=== PATIENT | female | born 1990 | race African-American/Black ===

== ENCOUNTER 2019-12-03 18:15 | Emergency (ER) | payer OTHER, SELFPAY ==
--- NOTE | ~2019-12-03 | XR_ITS ---
EXAMINATION: XR chest 1V portable EXAM DATE: 12/03/2019 18:47 INDICATION: Shortness of breath, cough and fever. TECHNIQUE: Portable AP frontal chest x-ray was obtained. There is no prior study for comparison. FINDINGS: The lungs are clear. There are no pleural effusions. Cardiac silhouette is prominent but magnified on this AP technique. There is no pneumothorax suspected. The bones and soft tissues are unremarkable. IMPRESSION: No acute cardiopulmonary findings. Reviewed, dictated and finalized at location A.
[2019-12-03 18:15] VITALS: BP 129/70; PULSE 79; RESP 16; TEMP 36.8; O2SAT 100
--- NOTE | 2019-12-03 18:30 | ED.URI ---
HPI - URI/Sore Throat General Chief Complaint: Upper Respiratory Infection Stated Complaint: short of breath, cough, congestion, chills Time Seen by Provider: 12/03/19 18:25 History of Present Illness HPI Narrative: Sore throat, pleuritic chest pain, wheezing, SOB, chills for the past day. She is not aware of any sick contacts. 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 Vitals during triage were all normal. She has a h/o asthma, tried breathing treatment without improvement. Related Data Allergies Allergy/AdvReac Type Severity Reaction Status Date / Time No Known Allergies Allergy Unverified 11/08/16 14:48 Review of Systems Review of Systems: All systems reviewed & are unremarkable except as noted in HPI and below Constitutional: Constitutional: Reports chills, Reports fatigue and Denies fever(s) ENT: Reports sore throat Cardiovascular: Cardiovascular: Reports chest pain Respiratory: Respiratory: Reports chest congestion, Reports cough, Reports dyspnea and Reports wheezing Gastrointestinal: Gastrointestinal: Denies abdominal pain, Denies nausea and Denies vomiting Genitourinary: Genitourinary: Denies dysuria Neurologic: Denies dizziness and Denies weakness [facility] Past Medical History Medical History (Updated 12/03/19 @ 19:09 by Jer Valdez MD) Asthma Social History Social History (Updated 12/03/19 @ 18:44 by Jer Valdez MD) Social History: Works as STRATEGIC SOURCING 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 in retirement Smoking status: Never smoker Exam Const: General: healthy appearing, no acute distress and alert Orientation/consciousness: patient oriented x3 Resp: Effort & Inspection: normal respiratory effort Skin: General skin exam: normal color Neuro: General: patient oriented x3, moves all extremities and no focal motor deficits Speech: normal speech Extrem: General: normal to inspection Course Vital Signs Vital signs: Vital Signs Temperature 36.8 C 12/03/19 18:15 Pulse Rate 79 12/03/19 18:15 Respiratory Rate 16 12/03/19 18:15 Blood Pressure 129/70 12/03/19 18:15 Pulse Oximetry 100 12/03/19 18:15 Temperature 36.8 C 12/03/19 18:15 Pulse Rate 79 12/03/19 18:15 Respiratory Rate 16 12/03/19 18:15 Blood Pressure 129/70 12/03/19 18:15 Pulse Oximetry 100 12/03/19 18:15 MDM - URI/Sore Throat MDM Narrative Medical decision making narrative: COVID is possible. She does not meet criteria for priority testing or hospitalization. X-ray is clear. Strep and influenza negative. Differential Diagnosis Differential diagnosis: Likely upper respiratory infection, influenza and pharyngitis Medical Records Attestation: I reviewed the patient's medical records. Lab Data Attestation: I reviewed the patient's lab results. Labs: Influenza A Screen Negative Reference Range: Negative Influenza B Screen Negative Reference Range: Negative Strep Screen Presumptive Negative *(Reference Range: Negative)* Discharge Plan Discharge Clinical Impression: Upper respiratory infection Qualifiers: URI type: unspecified URI Qualified Code(s): J06.9 - Acute upper respiratory infection, unspecified Patient Disposition: Home, Self-Care Condition: Stable Instructions: Upper Respiratory Infection (ED) Additional Instructions: Practice self quarantine. Do not return to work until you have been asymptomatic for at least 3 days. Interventions: Discharge Disposition Last Done: 12/03/19 19:14 IV Removed Last Done: 12/03/19 19:14 IV Stop Time Documented Last Done: 12/03/19 19:14 Follow-up/Referrals: UNKNOWN,DOCTOR [Primary Care Provider] - Discharge Date/Time: 12/03/19 19:15
== END 2019-12-03 19:15 | disposition home or self-care (01) ==
PROVIDERS: Emergency Provider Emergency Medicine
DX: J06.9 Acute upper respiratory infection, unspecified (principal); J45.909 Unspecified asthma, uncomplicated
CPT/HCPCS: 71045; 87081; 87804; 87880; 99283

== ENCOUNTER 2020-04-14 15:00 | Emergency (ER) | payer OTHER, SELFPAY ==
--- NOTE | ~2020-04-14 | XR_ITS ---
XR chest 1V portable DATE: 04/14/2020 15:40 INDICATION: Shortness of breath. Covid. TECHNIQUE: Portable upright AP chest on 04/14/2020 at 1539 hours COMPARISON: 12/03/2019 portable AP chest FINDINGS: Normal heart size. No hilar or mediastinal enlargement. No pulmonary infiltrate or consolid ation, pleural effusion or pulmonary vascular congestion or pneumothorax. IMPRESSION: No active cardiopulmonary disease Reviewed, dictated and finalized at location A.
[2020-04-14 15:08] VITALS: BP 128/80; PULSE 80; RESP 17; O2SAT 100
[2020-04-14 15:10] VITALS: PULSE 78
--- NOTE | 2020-04-14 15:10 | ED.SOB ---
HPI - SOB/Dyspnea General Chief Complaint: Shortness of Breath/Dyspnea Stated Complaint: covid +, can't catch my breath Time Seen by Provider: 04/14/20 15:09 Source: patient Mode of arrival: wheelchair Limitations: no limitations History of Present Illness HPI Narrative: Patient is a 30-year-old female with a history of asthma who presents for evaluation of shortness of breath in the setting of recent positive cover test. Patient states she has been symptomatic for 5 days with fever, cough, cold symptoms. She states she developed some shortness of breath over the past 48 hours. She states that when she ambulates she feels very short of breath. She denies current chest pain. No fever today. Patient states she only had 1 day of fevers with initial symptoms. Patient states she feels weak, she has achiness all over her body. She denies any dysuria or hematuria. Related Data Home Medications Medication Instructions Recorded Confirmed etonogestrel-ethinyl estradiol vag ring VAGINAL 04/14/20 [NuvaRing] Allergies Allergy/AdvReac Type Severity Reaction Status Date / Time No Known Allergies Allergy Unverified 04/14/20 15:13 Review of Systems Review of Systems: Narrative: CONSTITUTIONAL: Reports 1 day of fever earlier in the week, no current fever ENT: Reports rhinorrhea and congestion CARDIOVASCULAR: Denies chest pain, palpitations, or edema. RESPIRATORY: Reports dry cough and shortness of breath GASTROINTESTINAL: Denies abdominal pain, reports nausea without vomiting GENITOURINARY: Denies dysuria or hematuria. SKIN: Denies rash or itching. 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 EYES: PERRLA and EOMI. ENT: Nares clear, no rhinorrhea or epistaxis. Mucous membranes moist. NECK: Supple. CHEST: No respiratory distress, breathing even and non labored, positive chest wall tenderness HEART: Regular rate, sinus rhythm ABDOMEN:Non distended, non tender EXTREMITIES: Normal range of motion. No edema. SKIN: Warm, dry, no rash. NEURO:No focal deficits. Alert and oriented x3 Course Vital Signs Vital signs: Vital Signs Pulse Rate 80 04/14/20 15:08 Respiratory Rate 17 04/14/20 15:08 Blood Pressure 128/80 04/14/20 15:08 Pulse Oximetry 100 04/14/20 15:08 Temperature 36.9 C 04/14/20 17:43 Pulse Rate 64 04/14/20 17:43 Respiratory Rate 20 04/14/20 17:43 Blood Pressure 111/76 04/14/20 17:43 Pulse Oximetry 100 04/14/20 17:43 MDM - SOB/Dyspnea MDM Narrative Medical decision making narrative: Patient presented for evaluation of myalgias, shortness of breath in the setting of recently diagnosed COVID infection. Patient presents with very stable vital signs and no respiratory distress. No hypotension, tachycardia, patient is afebrile, and no hypoxemia. Absolutely no respiratory distress on exam. Given patient is on control with history of COVID, wanted to rule out any blood clot or coagulopathy. Laboratory work-up is reassuring. EKG without any acute ischemic changes. Chest x-ray without any acute infiltrates or evidence of ARDS. Laboratory results without leukocytosis, no electrolyte derangement, no elevation in d-dimer. Thus I doubt PE given no hypoxemia, no tachycardia, no lab markers of severe symptoms and d-dimer is not elevated. Troponin not elevated, I doubt myocarditis. No back pain or ripping/tearing sensation to pain, thus I doubt vascular pathology [place] given stable vital signs. Patient was a
--- NOTE | 2020-04-14 15:12 | ECG_ITS ---
Measurements Intervals [place] Rate: 72 P: 11 FL: 144 QRS: 62 QRSD: 99 T: 51 QT: 375 QTc: 410 Interpretive Statements SINUS RHYTHM NORMAL ECG Electronically Signed On 04-14-2020 15:39:19 CDT by Felix Luciano D.O.
[2020-04-14 15:25] LABS: Basophils Percent Auto 0.6 % (0.2-1.2); Eosinophils Absolute Auto 0.3 K/mm3 (0-0.3); Eosinophils Percent Auto 4.5 % (0-4.4); Hematocrit 41.3 % (37.0-47.0); Hemoglobin 13.9 g/dL (12.0-15.0); Immature Granulocyte Absolute 0.02 K/mm3 (0.00-0.031); Immature Granulocyte Percent A 0.3 % (0-0.5); Lymphocytes Percent Auto 46.5 % (18.3-44.2); Mean Corpuscular HGB Conc 33.7 g/dl (32-36); Mean Corpuscular Hemoglobin 30.1 pg (26-34); Mean Corpuscular Volume 89.4 fl (80-100); Mean Platelet Volume 10.4 fl (7.4-10.4); Monocytes Absolute Auto 0.4 K/mm3 (0.1-0.6); Monocytes Percent Auto 6.6 % (2.6-8.5); Neutrophils Absolute Auto 2.6 K/mm3 (1.3-6.7); Neutrophils Percent Auto 41.5 % (45.5-73.1); Platelet Count Result 301 k/mm3 (150-375); Red Blood Count 4.62 M/mm3 (4.2-5.4); Red Cell Distribution Width 11.5 % (11.5-14.5); White Blood Count 6.2 K/mm3 (4.5-10.0)
[2020-04-14 15:38] LABS: Anion Gap 9 mmol/L (8-16); Blood Urea Nitrogen 9 mg/dL (7-17); Calcium 9.4 mg/dL (8.4-10.2); Carbon Dioxide 24 mmol/L (22-30); Chloride 104 mmol/L (98-107); Estimated CRCL calculation 87 ml/min; Estimated Glomerular Filt Rate > 60; Glucose 89 mg/dL (65-105); Potassium 4.3 mmol/L (3.4-5.0); Sodium 137 mmol/L (137-145)
--- NOTE | 2020-04-14 15:42 | PC.NURSE ---
called lab to come draw pt
[2020-04-14] MEDS: SODIUM CHLORIDE 0.9% IV 500 ML 999 ML IV CONT (15:48)
[2020-04-14] MEDS: ACETAMINOPHEN 500 MG TABLET 1000 MG PO (15:48)
[2020-04-14] MEDS: MORPHINE SULFATE 2 MG/ML INJ IV PUSH (15:54)
[2020-04-14] MEDS: ONDANSETRON INJ 4 MG/2 ML VIAL IV PUSH (15:54)
[2020-04-14 16:14] LABS: Basophils Percent Auto 0.5 % (0.2-1.2); Eosinophils Absolute Auto 0.2 K/mm3 (0-0.3); Eosinophils Percent Auto 3.9 % (0-4.4); Hematocrit 39.9 % (37.0-47.0); Hemoglobin 13.2 g/dL (12.0-15.0); Immature Granulocyte Absolute 0.02 K/mm3 (0.00-0.031); Immature Granulocyte Percent A 0.4 % (0-0.5); Lymphocytes Absolute Auto 2.42 K/mm3 (0.9-3.2); Lymphocytes Percent Auto 42.7 % (18.3-44.2); Mean Corpuscular HGB Conc 33.1 g/dl (32-36); Mean Corpuscular Hemoglobin 29.9 pg (26-34); Mean Corpuscular Volume 90.3 fl (80-100); Mean Platelet Volume 10.2 fl (7.4-10.4); Monocytes Absolute Auto 0.3 K/mm3 (0.1-0.6); Neutrophils Absolute Auto 2.6 K/mm3 (1.3-6.7); Neutrophils Percent Auto 46.5 % (45.5-73.1); Platelet Count Result 303 k/mm3 (150-375); Red Blood Count 4.42 M/mm3 (4.2-5.4); Red Cell Distribution Width 11.4 % (11.5-14.5); White Blood Count 5.7 K/mm3 (4.5-10.0)
[2020-04-14 16:24] LABS: Alanine Aminotransferase 17 U/L (4-35); Albumin Level 4.4 g/dL (3.5-5.1); Alkaline Phosphatase 56 U/L (38-126); Aspartate Amino Transferase 33 U/L (14-36); Bilirubin,Total 0.3 mg/dL (0.2-1.3)
[2020-04-14 16:26] LABS: CRP < 0.5 mg/dL (<1.0); INR 1.1; Lactate Dehydrogenase 496 U/L (313-618); Prothrombin Time 13.7 Seconds (11.1-14.7)
[2020-04-14 16:27] LABS: Partial Thromboplastin Time 29.5 SECONDS (22.3-36.8)
[2020-04-14 16:34] LABS: Troponin I < 0.012 ng/mL (0.000-0.034)
[2020-04-14 17:43] VITALS: BP 111/76; PULSE 64; RESP 20; TEMP 36.9; O2SAT 100
[2020-04-14 18:00] LABS: D Dimer 0.27 ug/mL (<0.48)
[2020-04-14 18:02] LABS: Add Urine Microscopic? YES; Appearance Urine Clear (Clear); Bacteria Urine Trace /hpf; Bilirubin Urine Negative (Negative); Blood Urine Negative (Negative); Color Urine Yellow (Yellow); Glucose Urine UA Negative (Negative); Ketones Urine Negative (Negative); Leukocyte Esterase Ur Trace LEU/UL (Negative); Mucus Urine Rare /lpf; Nitrate Urine Negative (Negative); Protein Urine Negative (Negative); RBC Urine 0-2 /hpf (0-2); Specific Grav Ur 1.021 (1.001-1.035); Squamous Epithelial Cell Urine Occasional /hpf (Few); WBC Urine 0-3 /hpf
[2020-04-14 18:44] VITALS: BP 117/80; PULSE 62; RESP 23; O2SAT 98
== END 2020-04-14 18:45 | disposition home or self-care (01) ==
PROVIDERS: Emergency Provider Emergency Medicine
DX: U07.1 COVID-19 (principal); R06.00 Dyspnea, unspecified; J45.909 Unspecified asthma, uncomplicated
CPT/HCPCS: 36415; 71045; 80048; 80076; 81001; 81025; 82728; 83615; 84484; 85025; 85380; 85610; 85730; 86140; 93005; 96361; 96374; 96375; 99284; A9270; J2270; J2405; J7040

== ENCOUNTER 2020-08-08 08:40 | Emergency (ER) | payer OTHER, SELFPAY ==
[2020-08-08 08:44] VITALS: BP 122/70; PULSE 82; RESP 18; TEMP 36.3; O2SAT 99
[2020-08-08 09:25] LABS: Add Urine Microscopic? YES; Appearance Urine Clear (Clear); Bacteria Urine Trace /hpf; Bilirubin Urine Negative (Negative); Blood Urine 1+ (Negative); Color Urine Yellow (Yellow); Glucose Urine UA Negative (Negative); Ketones Urine Negative (Negative); Leukocyte Esterase Ur 3+ LEU/UL (Negative); Mucus Urine Rare /lpf; Nitrate Urine Negative (Negative); Protein Urine 1+ mg/dL (Negative); Specific Grav Ur 1.015 (1.001-1.035); Squamous Epithelial Cell Urine Occasional /hpf (Few); WBC Clumps Urine Present /HPF; WBC Urine >75 /hpf
--- NOTE | 2020-08-08 09:39 | ED.FEMALEGU ---
HPI - Female Genitourinary General Chief complaint: Urogenital-Female Stated complaint: UTI sx Time Seen by Provider: 08/08/20 09:18 Source: patient Mode of arrival: ambulatory Limitations: no limitations History of Present Illness HPI Narrative: 30 years old -British female presents with lower abdominal pain, urinary frequency with burning sensation, associated with nausea and at least 4 vomiting since last night. Patient reports possible chills. Denies any fever. Patient denies exposure to anybody known having COVID-19. Related Data Home Medications Medication Instructions Recorded Confirmed etonogestrel-ethinyl estradiol vag ring VAGINAL 04/14/20 [NuvaRing] Allergies Allergy/AdvReac Type Severity Reaction Status Date / Time No Known Allergies Allergy Unverified 04/14/20 15:13 Review of Systems Review of Systems: Narrative: CONSTITUTIONAL: Denies fever, chills, or sweats. EYES: Denies visual changes, redness, or discharge. ENT: Denies rhinorrhea, congestion, sore throat, or otalgia. CARDIOVASCULAR: Denies chest pain, palpitations, or edema. RESPIRATORY: Denies cough or dyspnea. GASTROINTESTINAL: Denies abdominal pain, nausea, vomiting, or diarrhea. GENITOURINARY: Dysuria, frequency and urgency SKIN: Denies rash or itching. MUSCULOSKELETAL: Denies back pain, joint pain, or myalgia. NEUROLOGIC: Denies headache, numbness, or weakness. PSYCHIATRIC: Denies anxiety or depression. [facility] Past Medical History Medical History (Updated 08/08/20 @ 11:41 by Dasha Shah MD) Asthma Social History Social History Social History: Works as [employer] in [employer] Smoking status: Never smoker Gender identity (if verbalized by the patient): Female Exam Narrative: Exam Narrative: General appearance: Well-developed, well-nourished Skin: Normal color Chest and respiratory: Airway patent, no respiratory distress, no accessory muscle use Heart: Regular rate/rhythm Abdomen: Soft, mild tenderness suprapubic area, no guarding or rebound, no organomegaly, quiet bowel sounds Neurologic: Alert and oriented ?3, [employer] is normal as tested, no gross motor deficit Course Course Emergency Course: Stable Vital Signs Vital signs: Vital Signs Temperature 36.3 C L 08/08/20 08:44 Pulse Rate 82 08/08/20 08:44 Respiratory Rate 18 08/08/20 08:44 Blood Pressure 122/70 08/08/20 08:44 Pulse Oximetry 99 08/08/20 08:44 Temperature 36.3 C L 08/08/20 08:44 Pulse Rate 67 08/08/20 11:05 Respiratory Rate 14 08/08/20 11:05 Blood Pressure 121/74 08/08/20 11:05 Pulse Oximetry 99 08/08/20 11:05 MDM - Female Genitourinary MDM Narrative Medical decision making narrative: Urinary tract infection is my concern. Labs, UA ordered. Further plan to follow Differential Diagnosis Differential diagnosis: Likely urinary tract infection and cystitis Lab Data Result diagrams: 08/08/20 09:53 08/08/20 09:53 Labs: Lab Results 08/08/20 08/08/20 08/08/20 Range/Units 08:53 09:53 09:53 WBC 8.9 (4.5-10.0) K/mm3 RBC 4.13 L (4.2-5.4) M/mm3 Hgb 12.8 (12.0-15.0) g/dL Hct 38.4 (37.0-47.0) % MCV 93.0 (80-100) fl MCH 31.0 (26-34) pg MCHC 33.3 (32-36) g/dl RDW 12.0 (11.5-14.5) % Plt Count 320 (150-375) k/mm3 MPV 9.7 (7.4-10.4) fl Immature Gran % (Auto) 0.2 (0-0.5) % Neut % (Auto) 62.4 (45.5-73.1) % Lymph % (Auto) 24.3 (18.3-44.2) % [place] % (Auto) 6.3 (2.6-8.5) % Eos % (Auto) 5.9 H (0-4.4) % Baso % (Auto) 0.9 (0.2-1.2) % Lymph # (Auto) 2.15 (0.9-3.2) K/mm3 [place]
[2020-08-08] MEDS: KETOROLAC 30 MG/ML VIAL (*BKC) IV PUSH (09:58)
[2020-08-08 09:59] LABS: Basophils Absolute Auto 0.1 K/mm3 (0.0-0.1); Basophils Percent Auto 0.9 % (0.2-1.2); Eosinophils Absolute Auto 0.5 K/mm3 (0-0.3); Eosinophils Percent Auto 5.9 % (0-4.4); Hematocrit 38.4 % (37.0-47.0); Hemoglobin 12.8 g/dL (12.0-15.0); Immature Granulocyte Absolute 0.02 K/mm3 (0.00-0.031); Immature Granulocyte Percent A 0.2 % (0-0.5); Lymphocytes Absolute Auto 2.15 K/mm3 (0.9-3.2); Lymphocytes Percent Auto 24.3 % (18.3-44.2); Mean Corpuscular HGB Conc 33.3 g/dl (32-36); Mean Platelet Volume 9.7 fl (7.4-10.4); Monocytes Absolute Auto 0.6 K/mm3 (0.1-0.6); Monocytes Percent Auto 6.3 % (2.6-8.5); Neutrophils Absolute Auto 5.5 K/mm3 (1.3-6.7); Neutrophils Percent Auto 62.4 % (45.5-73.1); Platelet Count Result 320 k/mm3 (150-375); Red Blood Count 4.13 M/mm3 (4.2-5.4); White Blood Count 8.9 K/mm3 (4.5-10.0)
[2020-08-08 10:12] LABS: Alanine Aminotransferase 16 U/L (4-35); Albumin Level 4.1 g/dL (3.5-5.1); Alkaline Phosphatase 53 U/L (38-126); Anion Gap 6 mmol/L (8-16); Aspartate Amino Transferase 27 U/L (14-36); Bilirubin,Total 0.9 mg/dL (0.2-1.3); Blood Urea Nitrogen 15 mg/dL (7-17); Calcium 9.2 mg/dL (8.4-10.2); Carbon Dioxide 27 mmol/L (22-30); Chloride 105 mmol/L (98-107); Estimated CRCL calculation 102 ml/min; Estimated Glomerular Filt Rate > 60; Glucose 83 mg/dL (65-105); Potassium 4.4 mmol/L (3.4-5.0); Sodium 138 mmol/L (137-145)
[2020-08-08 11:05] VITALS: BP 121/74; PULSE 67; RESP 14; O2SAT 99
[2020-08-08 11:59] VITALS: BP 120/62; PULSE 64; RESP 12; O2SAT 99
== END 2020-08-08 12:00 | disposition home or self-care (01) ==
PROVIDERS: Emergency Provider Emergency Medicine
DX: N39.0 Urinary tract infection, site not specified (principal); J45.909 Unspecified asthma, uncomplicated
CPT/HCPCS: 36415; 80053; 81001; 81025; 85025; 87077; 87086; 87088; 87186; 96365; 96375; 99284; J0696; J1885

== ENCOUNTER 2021-03-10 07:44 | Emergency (ER) | payer OTHER, SELFPAY ==
--- NOTE | ~2021-03-10 | XR_ITS ---
XR chest 2V DATE: 03/10/2021 08:05 INDICATION: Shortness of breath. History of Covid infection TECHNIQUE: PA and lateral views COMPARISON: 04/14/2020 portable AP chest FINDINGS: Normal heart size. No hilar or mediastinal enlargement. No pulmonary infiltrate or consolid ation, pleural effusion or pulmonary vascular congestion or pneumothorax. The included skeletal struc tures are unremarkable. IMPRESSION: Negative Reviewed, dictated and finalized at location A. IMPRESSION: Negative
[2021-03-10 07:50] VITALS: BP 116/84; PULSE 90; RESP 18; TEMP 36.4; O2SAT 100
--- NOTE | 2021-03-10 07:53 | ECG_ITS ---
Measurements Intervals [place] Rate: 80 P: 45 [place]: 142 QRS: 56 QRSD: 86 T: 39 QT: 360 QTc: 415 Interpretive Statements SINUS RHYTHM BASELINE WANDER- AVR, AVL, AVF NORMAL ECG Electronically Signed On 03-10-2021 9:51:41 CDT by Felix Luciano D.O.
[2021-03-10 07:54] VITALS: PULSE 81
[2021-03-10 08:05] LABS: Basophils Absolute Auto 0.1 K/mm3 (0.0-0.1); Eosinophils Absolute Auto 0.7 K/mm3 (0-0.3); Hematocrit 40.7 % (37.0-47.0); Hemoglobin 13.4 g/dL (12.0-15.0); Immature Granulocyte Absolute 0.02 K/mm3 (0.00-0.031); Immature Granulocyte Percent A 0.3 % (0-0.5); Lymphocytes Absolute Auto 2.24 K/mm3 (0.9-3.2); Lymphocytes Percent Auto 37.2 % (18.3-44.2); Mean Corpuscular HGB Conc 32.9 g/dl (32-36); Mean Corpuscular Hemoglobin 30.5 pg (26-34); Mean Corpuscular Volume 92.5 fl (80-100); Monocytes Absolute Auto 0.7 K/mm3 (0.1-0.6); Monocytes Percent Auto 10.8 % (2.6-8.5); Neutrophils Absolute Auto 2.4 K/mm3 (1.3-6.7); Neutrophils Percent Auto 39.7 % (45.5-73.1); Platelet Count Result 293 k/mm3 (150-375); Red Cell Distribution Width 11.5 % (11.5-14.5)
--- NOTE | 2021-03-10 08:08 | ED.GENADULT ---
HPI - General Adult General Chief complaint: Unspecified Stated complaint: Head and Body Aches Time Seen by Provider: 03/10/21 07:52 Source: patient Mode of arrival: ambulatory Limitations: no limitations History of Present Illness HPI narrative: Patient is a 31-year-old female complaining of cough, nasal and chest congestion, body aches, fatigue, headache and sore throat that started yesterday. Patient denies any shortness of breath, abdominal pain, vomiting, diarrhea, fever or chills. Related Data Home Medications Medication Instructions Recorded Confirmed etonogestrel-ethinyl estradiol vag ring VAGINAL 04/14/20 [NuvaRing] Allergies Allergy/AdvReac Type Severity Reaction Status Date / Time No Known Allergies Allergy Verified 03/10/21 07:54 Review of Systems Review of Systems: All systems reviewed & are unremarkable except as noted in HPI and below Constitutional: Constitutional: Denies chills, Denies excessive sweating, Denies fatigue, Denies fever(s), Denies headache(s), Denies lethargy, Denies malaise, Denies weakness and Denies weight loss Eyes: Eyes: Denies blurry vision, Denies change in vision and Denies loss of vision ENT: Denies dizziness, Denies ear discharge, Denies headache(s), Denies lip swelling, Denies epistaxis, Denies nasal congestion, Denies neck pain, Denies throat swelling and Denies tongue swelling Cardiovascular: Cardiovascular: Denies chest pain with activity, Denies diaphoresis, Denies rapid heart rate, Denies edema, Denies irregular heart rhythm, Denies lightheadedness, Denies palpitations, Denies dyspnea and Denies dyspnea on exertion Respiratory: Respiratory: Denies hemoptysis, Denies dyspnea and Denies dyspnea on exertion Gastrointestinal: Gastrointestinal: Denies abdominal pain, Denies melena, Denies hematochezia, Denies diarrhea, Denies nausea, Denies vomiting and Denies hematemesis Musculoskeletal: Musculoskeletal: Denies abnormal gait, Denies deformity, Denies joint swelling, Denies limited range of motion, Denies neck pain and Denies numbness Neurologic: Denies Abnormal speech present, Denies abnormal gait, Denies confusion, Denies dizziness, Denies headache(s), Denies focal weakness, Denies loss of vision, Denies numbness, Denies Other visual disturbances, Denies Sensory deficit (Neuro) and Denies weakness Psychiatric: Psychiatric: Denies confusion, Denies depression, Denies auditory hallucinations, Denies homicidal ideation and Denies suicidal ideation Endocrine: Endocrine: Denies cold intolerance, Denies excessive sweating, Denies fatigue, Denies heat intolerance and Denies palpitations Hematologic/Lymphatic: Hematologic/Lymphatic: Denies easy bleeding and Denies easy bruising Allergic/Immunologic: Allergic/Immunologic: Denies lip swelling, Denies throat swelling and Denies tongue swelling PMFSH Past Medical History Medical History (Updated 03/10/21 @ 08:40 by Luis De La Vega MD) Asthma Social History Social History 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 Smoking status: Never smoker Gender identity (if verbalized by the patient): Female Comments Past medical history: None Family history: Negative for [place] or coronary disease Social history: Non-smoker no EtOH or drug use Exam Const: General: cooperative, healthy appearing, comfortable, no acute distress, well developed, alert and awake; No confusion Orientation/consciousness: oriented to person, oriented to place, oriented to time, patient oriented x3 and No confusion Limitations: no limitations HENMT: Head: normal to inspection, normocephalic and atraumatic Ears: hearing grossly normal bilaterally, TM normal on the right and TM normal on the left General nose exam: Normal external nose present, Normal nares present and No nasal discharge present Face and sinus: normal facial exam Mouth: Yes Normal oral and palatal mucosa present, Yes lip normal,
[2021-03-10 08:14] LABS: Anion Gap 6 mmol/L (8-16); Blood Urea Nitrogen 12 mg/dL (7-17); Calcium 8.6 mg/dL (8.4-10.2); Carbon Dioxide 23 mmol/L (22-30); Chloride 108 mmol/L (98-107); Estimated CRCL calculation 98 ml/min; Estimated Glomerular Filt Rate > 60; Glucose 97 mg/dL (65-105); Potassium 4.2 mmol/L (3.4-5.0); Sodium 137 mmol/L (137-145)
[2021-03-10 08:16] LABS: INR 0.9; Prothrombin Time 12.4 Seconds (11.1-14.7)
[2021-03-10 08:17] LABS: Partial Thromboplastin Time 29.2 SECONDS (22.3-36.8)
[2021-03-10 08:26] LABS: Troponin I < 0.012 ng/mL (0.000-0.034)
[2021-03-10 08:44] VITALS: BP 116/84; PULSE 77; RESP 16; O2SAT 99
== END 2021-03-10 08:51 | disposition home or self-care (01) ==
PROVIDERS: Emergency Provider Emergency Medicine
DX: B34.9 Viral infection, unspecified (principal); J06.9 Acute upper respiratory infection, unspecified; J45.909 Unspecified asthma, uncomplicated
CPT/HCPCS: 36415; 71046; 80048; 84484; 85025; 85610; 85730; 93005; 99284

== ENCOUNTER 2021-04-23 10:28 | Emergency (ER) | payer OTHER, SELFPAY ==
[2021-04-23 10:56] VITALS: BP 130/79; PULSE 90; RESP 15; TEMP 36.2; O2SAT 100
[2021-04-23 11:37] LABS: Add Urine Microscopic? YES; Appearance Urine Clear (Clear); Bilirubin Urine Negative (Negative); Blood Urine 1+ (Negative); Color Urine Yellow (Yellow); Glucose Urine UA Negative (Negative); Ketones Urine Negative (Negative); Leukocyte Esterase Ur 3+ LEU/UL (Negative); Mucus Urine Rare /lpf; Nitrate Urine Negative (Negative); Protein Urine Negative (Negative); RBC Urine 0-2 /hpf (0-2); Specific Grav Ur 1.025 (1.001-1.035); Squamous Epithelial Cell Urine Few /hpf (Few); Urobilinogen Urine Negative mg/dL (<2.0); WBC Urine 0-3 /hpf
--- NOTE | 2021-04-23 11:39 | ED.GENADULT ---
HPI - General Adult General Chief complaint: Urogenital-Female Stated complaint: UTI Time Seen by Provider: 04/23/21 11:38 History of Present Illness HPI narrative: Patient is a 31-year-old female who comes to the emergency room today complaining of UTI type symptoms. Patient reports that yesterday she developed some dysuria, pressure, urinary urgency and frequency. Admits to previous history of similar symptoms due to urinary tract infection. Denies any vaginal discharge, abdominal pain, fevers. She has no concern for STD. No concern for Related Data Home Medications Medication Instructions Recorded Confirmed etonogestrel-ethinyl estradiol vag ring VAGINAL 04/14/20 [NuvaRing] Allergies Allergy/AdvReac Type Severity Reaction Status Date / Time No Known Allergies Allergy Verified 04/23/21 11:23 Review of Systems Constitutional: Constitutional: Reports as per HPI, Denies fever(s), Denies night sweats and Denies weakness Cardiovascular: Cardiovascular: Denies chest pain, Denies edema, Denies leg edema, Denies dyspnea and Denies orthopnea Respiratory: Respiratory: Denies cough and Denies dyspnea Gastrointestinal: Gastrointestinal: Denies abdominal pain, Denies constipation, Denies diarrhea, Denies nausea and Denies vomiting Genitourinary: Comments: See HPI Musculoskeletal: Musculoskeletal: Denies abnormal gait, Denies back pain, Denies numbness and Denies tingling Neurologic: Denies Abnormal speech present, Denies abnormal gait, Denies numbness, Denies tingling and Denies weakness Psychiatric: Psychiatric: Denies homicidal ideation and Denies suicidal ideation [facility] Past Medical History Medical History (Updated 04/23/21 @ 11:59 by Kendall Harris PA-C) Asthma Social History Social History 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 Smoking status: Never smoker Gender identity (if verbalized by the patient): Female Exam Narrative: Well-appearing, pleasant, no distress Const: General: cooperative, healthy appearing, comfortable, no acute distress, well developed, alert, awake and Physically active Orientation/consciousness: patient oriented x3 HENMT: Head: normal to inspection, normocephalic and atraumatic Ears: external ears normal General nose exam: Normal external nose present Eyes: Pupils: Equal, round and reactive pupils present EOM: EOMs intact bilaterally Neck: Neck: normal visual inspection Chest: Chest palpation & inspection: normal inspection of the chest and no tenderness Resp: Effort & Inspection: normal respiratory effort and able to speak in complete sentences Auscultation: clear to auscultation bilaterally Cardio: Rate: regular rate Rhythm: regular rhythm GI: Inspection: normal to inspection GI Palp: No abdominal tenderness : General: Yes no CVA tenderness Other: No pain with deep palpation Back/Spine/Pelvis: Back: no CVA tenderness Skin: General skin exam: normal color and no rashes or lesions noted Lesions: no lesions Neuro: General: patient oriented x3, no focal motor deficits and CN's II-XI intact bilaterally Cranial nerves: Yes Equal, round and reactive pupils present Speech: No Abnormal speech present Extrem: General: normal to inspection and full ROM Psych: Appearance: grossly normal and well kempt Mental Status: mental status grossly normal Speech and movement: Normal speech and movement present Affect: normal affect Thought process: Normal thought process present Course Course Emergency Course: Patient says that she needs to leave right away to go fish bait picker her daughter. Patient agreeable for plan for discharge with antibiotics and strict return to ED precautions with any new or worsening symptoms. To be feeling much better in a couple days. Vital Signs Vital signs: Vital Signs Temperature 36.2 C L 04/23/21 10:56 Pulse Rate 90 04/23/21 10:56 Respiratory Rate 1
--- NOTE | 2021-04-23 11:49 | PC.NURSE ---
ERPA at bedside for pt assessment.
== END 2021-04-23 12:15 | disposition home or self-care (01) ==
LOC: ANHED 12:09
PROVIDERS: Emergency Provider Emergency Medicine
DX: N34.2 Other urethritis (principal); J45.909 Unspecified asthma, uncomplicated
CPT/HCPCS: 81001; 81025; 99283

== ENCOUNTER 2021-05-24 20:07 | Emergency (ER) | payer OTHER, SELFPAY ==
[2021-05-24 20:09] VITALS: BP 127/76; PULSE 78; RESP 20; TEMP 36.9; O2SAT 96
--- NOTE | 2021-05-24 20:55 | ED.GENADULT ---
HPI - General Adult General Chief complaint: Unspecified <Luh Torres PA-C - Last Filed: 05/24/21 20:56> Stated complaint: covid-19 vaccine, body aches <Luh Torres PA-C - Last Filed: 05/24/21 20:56> Time Seen by Provider: 05/24/21 20:41 <Luh Torres PA-C - Last Filed: 05/24/21 20:56> Source: patient <FACUNDO Rodgers Last Filed: 05/24/21 20:56> Mode of arrival: ambulatory <FACUNDO Rodgers Last Filed: 05/24/21 20:56> Limitations: no limitations <Luh Torres PA-C - Last Filed: 05/24/21 20:56> History of Present Illness HPI narrative: Patient presents with chief complaint of body aches, patients headache was not sudden or maximal in onset. There are o focal neurological deficits on exam. Subarachnoid hemorrhage is felt to be unlikey at this time. There is no history of fever, and neck is supple without meningismus, making meningitis unlikely. No traumatic history or signs of trauma on exam. No risk factors for CVA, risk factors reviewed. NO ocular signs on exam and in history to suggest acute glaucoma. Patients headache is felt to be a reasonable candidate for outpatient evaluation and congestion after receiving her second Vaccine dose on yesterday. Patient states she has taken some Tylenol for her symptoms. 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 Patient denies any other emergent symptoms. <Luh Torres PA-C - Last Filed: 05/24/21 20:56> Related Data Home medications: Home Medications Medication Instructions Recorded Confirmed etonogestrel-ethinyl estradiol vag ring VAGINAL 04/14/20 [NuvaRing] <Luh Torres PA-C - Last Filed: 05/24/21 20:56> Allergies/adverse reactions: Allergies Allergy/AdvReac Type Severity Reaction Status Date / Time No Known Allergies Allergy Verified 05/24/21 20:39 <FACUNDO Rodgers Last Filed: 05/24/21 20:56> Review of Systems Review of Systems: CONSTITUTIONAL: Reports body aches denies fever, chills, or sweats. EYES: Denies visual changes, redness, or discharge. ENT: Reports congestion denies rhinorrhea, sore throat, or otalgia. CARDIOVASCULAR: Denies chest pain, palpitations, or edema. RESPIRATORY: Denies cough or dyspnea. GASTROINTESTINAL: Denies abdominal pain, nausea, vomiting, or diarrhea. GENITOURINARY: Denies dysuria or hematuria. SKIN: Denies rash or itching. MUSCULOSKELETAL: Denies back pain, joint pain, or myalgia. NEUROLOGIC: Reports mild headache denies numbness, dizziness, or weakness. PSYCHIATRIC: Denies anxiety or depression. <Luh Torres PA-C - Last Filed: 05/24/21 20:56> 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 [employer] Smoking status: Never smoker Gender identity (if verbalized by the patient): Female <Luh Torres PA-C - Last Filed: 05/24/21 20:56> Course Vital Signs Vital signs: Vital Signs Temperature 98.4 F 05/24/21 20:09 Pulse Rate 78 05/24/21 20:09 Respiratory Rate 20 05/24/21 20:09 Blood Pressure 127/76 05/24/21 20:09 Pulse Oximetry 96 05/24/21 20:09 Temperature 98.4 F 05/24/21 20:09 Pulse Rate 78 05/24/21 20:09 Respiratory Rate 20 05/24/21 20:09 Blood Pressure 127/76 05/24/21 20:09 Pulse Oximetry 96 05/24/21 20:09 <Luh Torres PA-C - Last Filed: 05/24/21 20:56> Medical Decision Making MDM Narrative Medical decision making narrative: Patient does not have any life-threatening symptoms. Patient has been told to treat symptomatically. Patient has instructed to return to emergency department if she has any emergent symptoms. <Luh Torres PA-C - Last Filed: 05/24/21
== END 2021-05-24 21:11 | disposition home or self-care (01) ==
PROVIDERS: Emergency Provider General Practice
DX: R52 Pain, unspecified (principal); T50.B95A Adverse effect of other viral vaccines, initial encounter; Z87.09 Personal history of other diseases of the respiratory system
CPT/HCPCS: 99281

== ENCOUNTER 2021-07-26 07:55 | Emergency (ER) | payer OTHER, SELFPAY ==
--- NOTE | ~2021-07-26 | US_ITS ---
EXAMINATION: US OB <=14 wk fetus w TV EXAM DATE: 07/26/2021 09:22 INDICATION: Vaginal bleeding, VB. 1st trimester. TECHNIQUE: Pelvic transabdominal and transvaginal sonogram was performed. There are multiple graysca le and Doppler images available for interpretation. There is no prior study for comparison. FINDINGS: Uterus measures 8.5 x 4.2 x 4.5 cm. There is intrauterine gestation sac. The mean sac bronson meter of 7.5 mm corresponds to estimated gestational age by ultrasound of 5 weeks 4 days, estimated d ate of confinement 03/24/2022. There is no pole identified or yolk sac identified at this time, cannot confirm viability. There is no sonographic evidence of subchorionic hemorrhage. The ovarie s are morphologically normal and demonstrate Doppler flow. IMPRESSION: Early intrauterine gestation sac. Cannot confirm pole or viability at this time. C onsider 2 week follow-up pelvic sonogram. Reviewed, dictated and finalized at location A. INAL JUSTICE PROFESSOR IMPRESSION: Early intrauterine gestation sac. Cannot confirm pole or via bility at this time. Consider 2 week follow-up pelvic sonogram.
[2021-07-26 08:03] VITALS: BP 112/76; PULSE 81; RESP 16; TEMP 36.6; O2SAT 100
--- NOTE | 2021-07-26 08:11 | ED.FEMALEGU ---
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 Patient states started off as heavy and now just spotting accompanied by mild pelvic cramping. Patient states that she has not had care yet since she only tested positive for a week ago. Related Data Home Medications Medication Instructions Recorded Confirmed etonogestrel-ethinyl estradiol vag ring VAGINAL 04/14/20 [NuvaRing] Allergies Allergy/AdvReac Type Severity Reaction Status Date / Time No Known Allergies Allergy Verified 05/24/21 20:39 Review of Systems Review of Systems: All systems reviewed & are unremarkable except as noted in HPI and below Constitutional: Constitutional: Denies body ache(s), Denies chills, Denies excessive sweating, Denies fatigue, Denies fever(s), Denies headache(s), Denies lethargy, Denies malaise, Denies weakness and Denies weight loss Eyes: Eyes: Denies blurry vision, Denies change in vision and Denies loss of vision ENT: Denies dizziness, Denies ear discharge, Denies headache(s), Denies lip swelling, Denies epistaxis, Denies nasal congestion, Denies neck pain, Denies throat swelling and Denies tongue swelling Cardiovascular: Cardiovascular: Denies chest pain, Denies chest pain at rest, Denies chest pain with activity, Denies diaphoresis, Denies rapid heart rate, Denies edema, Denies irregular heart rhythm, Denies lightheadedness, Denies palpitations, Denies dyspnea and Denies dyspnea on exertion Respiratory: Respiratory: Denies chest congestion, Denies cough, Denies hemoptysis, Denies dyspnea and Denies dyspnea on exertion Gastrointestinal: Gastrointestinal: Denies abdominal pain, Denies melena, Denies hematochezia, Denies diarrhea, Denies nausea, Denies vomiting and Denies hematemesis Musculoskeletal: Musculoskeletal: Denies abnormal gait, Denies deformity, Denies joint swelling, Denies limited range of motion, Denies neck pain and Denies numbness Neurologic: Denies Abnormal speech present, Denies abnormal gait, Denies confusion, Denies dizziness, Denies headache(s), Denies focal weakness, Denies loss of vision, Denies numbness, Denies Other visual disturbances, Denies Sensory deficit (Neuro) and Denies weakness Psychiatric: Psychiatric: Denies confusion, Denies depression, Denies auditory hallucinations, Denies homicidal ideation and Denies suicidal ideation Endocrine: Endocrine: Denies cold intolerance, Denies excessive sweating, Denies fatigue, Denies heat intolerance and Denies palpitations Hematologic/Lymphatic: Hematologic/Lymphatic: Denies easy bleeding and Denies easy bruising Allergic/Immunologic: Allergic/Immunologic: Denies lip swelling, Denies throat swelling and Denies tongue swelling PMFSH Past Medical History Medical History (Updated 07/26/21 @ 09:51 by Luis De La Vega MD) Asthma Social History Social History 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 Smoking status: Never smoker Gender identity (if verbalized by the patient): Female Comments Past medical history: None Family history: Noncontributory Social history: Non-smoker no EtOH or drug use Exam Const: General: cooperative, healthy appearing, comfortable, no acute distress, well developed, alert and awake; No confusion Orientation/consciousness: oriented to person, oriented to place, oriented to time, patient oriented x3 and No confusion Limitations: no limitations HENMT: Head: normal to inspection, normocephalic and atraumatic Ears: hearing grossly normal bilaterally, TM normal on the right and TM normal on the left General nose exam: Normal external nose present,
[2021-07-26 08:19] LABS: Basophils Absolute Auto 0.1 K/mm3 (0.0-0.1); Basophils Percent Auto 1.1 % (0.2-1.2); Eosinophils Absolute Auto 0.3 K/mm3 (0-0.3); Eosinophils Percent Auto 5.2 % (0-4.4); Hematocrit 40.4 % (37.0-47.0); Hemoglobin 12.9 g/dL (12.0-15.0); Immature Granulocyte Absolute 0.02 K/mm3 (0.00-0.031); Immature Granulocyte Percent A 0.3 % (0-0.5); Lymphocytes Absolute Auto 2.43 K/mm3 (0.9-3.2); Lymphocytes Percent Auto 39.8 % (18.3-44.2); Mean Corpuscular HGB Conc 31.9 g/dl (32-36); Mean Corpuscular Hemoglobin 30.4 pg (26-34); Mean Corpuscular Volume 95.3 fl (80-100); Mean Platelet Volume 9.5 fl (7.4-10.4); Monocytes Absolute Auto 0.5 K/mm3 (0.1-0.6); Monocytes Percent Auto 8.5 % (2.6-8.5); Neutrophils Absolute Auto 2.7 K/mm3 (1.3-6.7); Neutrophils Percent Auto 45.1 % (45.5-73.1); Platelet Count Result 306 k/mm3 (150-375); Red Blood Count 4.24 M/mm3 (4.2-5.4); Red Cell Distribution Width 11.9 % (11.5-14.5); White Blood Count 6.1 K/mm3 (4.5-10.0)
[2021-07-26] MEDS: SODIUM CHLORIDE 0.9% IV 1,000 ML 999 ML IV CONT (08:33)
== END 2021-07-26 10:41 | disposition home or self-care (01) ==
PROVIDERS: Emergency Provider Emergency Medicine; PCP Obstetrics & Gynecology
DX: O20.0 Threatened abortion (principal); O99.511 Diseases of the respiratory system complicating pregnancy, first trimester; J45.909 Unspecified asthma, uncomplicated; Z3A.01 Less than 8 weeks gestation of pregnancy
CPT/HCPCS: 36415; 76801; 76817; 84702; 85025; 85461; 96360; 96361; 99284; J7030

== ENCOUNTER 2022-05-06 11:54 | Emergency (ER) | payer OTHER, SELFPAY ==
[2022-05-06 12:19] VITALS: BP 137/90; PULSE 86; RESP 16; TEMP 36.6; O2SAT 100
--- NOTE | 2022-05-06 12:31 | ED.GENADULT ---
HPI - General Adult General Chief complaint: Urogenital-Female Stated complaint: UTI symptoms Time Seen by Provider: 05/06/22 12:25 History of Present Illness HPI narrative: 32-year-old female presenting to the emergency department for evaluation of symptoms of urinary tract infection. Patient states that yesterday she began having increased burning with urination increased urinary frequency and increased urinary pressure. Patient denies any vaginal bleeding vaginal discharge. Patient denies any prior history of kidney stones. Related Data Home Medications Medication Instructions Recorded Confirmed etonogestrel 0.12 mg-ethinyl vag ring vaginal 04/14/20 estradiol 0.015 mg/24 hr vaginal ring (NuvaRing) Allergies Allergy/AdvReac Type Severity Reaction Status Date / Time No Known Allergies Allergy Verified 05/24/21 20:39 Review of Systems Review of Systems: CONSTITUTIONAL: Denies fever, chills, or sweats. EYES: Denies visual changes, redness, or discharge. ENT: Denies rhinorrhea, congestion, sore throat, or otalgia. CARDIOVASCULAR: Denies chest pain, palpitations, or edema. RESPIRATORY: Denies cough or dyspnea. GASTROINTESTINAL: Denies abdominal pain, nausea, vomiting, or diarrhea. GENITOURINARY: See HPI SKIN: Denies rash or itching. MUSCULOSKELETAL: Denies back pain, joint pain, or myalgia. NEUROLOGIC: Denies headache, numbness, or weakness. [facility] Past Medical History Medical History (Updated 05/06/22 @ 13:02 by Marino Larry MD) Asthma Social History Social History Social History: Works as [employer] in [employer] Smoking status: Never smoker Gender identity (if verbalized by the patient): Female Exam Narrative: APPEARANCE: Well appearing, no pain, no distress, well-nourished. HEAD: normocephalic, atraumatic. EYES: PERRLA/EOMI, conjunctivae clear. NOSE: Normal no drainage NECK: Supple. No adenopathy, no masses. RESPIRATORY: Airway patent, respirations nonlabored. Clear to auscultation bilaterally, no rales, rhonchi, wheezing. CARDIOVASCULAR: Regular rate and rhythm without murmurs rubs or gallops. ABDOMINAL: Soft, nontender, nondistended, normal bowel sounds MUSCULOSKELETAL: Moves all extremities. Strength/ROM intact, No edema, No calf tenderness. NEURO: Alert. Cranial nerves II through XII intact. Grossly intact SKIN: Warm, dry. Normal Color Course Course Emergency Course: Patient was treated for urinary tract infection. First dose of antibiotics was given while in the ED. Patient was updated on the results of her work-up. All questions and concerns were addressed Bedside test was negative. Vital Signs Vital signs: Vital Signs Temperature 97.9 F 05/06/22 12:19 Pulse Rate 86 05/06/22 12:19 Respiratory Rate 16 05/06/22 12:19 Blood Pressure 137/90 05/06/22 12:19 Pulse Oximetry 100 05/06/22 12:19 Oxygen Delivery Room Air 05/06/22 12:19 Temperature 97.9 F 05/06/22 12:19 Pulse Rate 86 05/06/22 12:19 Respiratory Rate 16 05/06/22 12:19 Blood Pressure 137/90 05/06/22 12:19 Pulse Oximetry 100 05/06/22 12:19 Oxygen Delivery Room Air 05/06/22 12:19 Medical Decision Making Vital Signs Vital Signs: Vital Signs Temperature 97.9 F 05/06/22 12:19 Pulse Rate 86 05/06/22 12:19 Respiratory Rate 16 05/06/22 12:19 Blood Pressure 137/90 05/06/22 12:19 Pulse Oximetry 100 05/06/22 12:19 Oxygen Delivery Room Air 05/06/22 12:19 Temperature 97.9 F 05/06/22 12:19 Pulse Rate 86 05/06/22 12:19 Respiratory Rate 16 05/06/22 12:19 Blood Pressure 137/90 05/06/22 12:19 Pulse Oximetry 100 05/06/22 12:19 Oxygen Delivery Room Air 05/06/22 12:19 Lab Data Lab results reviewed: Yes I reviewed the patient's lab results. Labs: Lab Results 05/06/22 Range/Units 12:24 Urine Color Yellow (Yellow) Urine Appearance Cloudy H (Clear) Urine pH
[2022-05-06 12:35] LABS: Appearance Urine Cloudy (Clear); Bilirubin Urine 1+ (Negative); Blood Urine 2+ (Negative); Color Urine Yellow (Yellow); Glucose Urine UA Negative (Negative); Ketones Urine Negative (Negative); Leukocyte Esterase Ur 2+ LEU/UL (Negative); Nitrate Urine Negative (Negative); Protein Urine 2+ mg/dL (Negative); Specific Grav Ur 1.025 (1.001-1.035)
[2022-05-06 12:42] LABS: Bacteria Urine Trace /hpf; RBC Urine >75 /hpf (0-2); Squamous Epithelial Cell Urine Few /hpf (Few); WBC Urine >75 /hpf
[2022-05-06 12:47] LABS: Add Urine Microscopic? YES
[2022-05-06] MEDS: PHENAZOPYRIDINE HCL 100 MG TABLET 200 MG PO (13:09)
[2022-05-06] MEDS: CEPHALEXIN 500 MG CAPSULE PO (13:09)
== END 2022-05-06 13:12 | disposition home or self-care (01) ==
PROVIDERS: Emergency Medicine; Emergency Provider Emergency Medicine; PCP Obstetrics & Gynecology
DX: N39.0 Urinary tract infection, site not specified (principal); J45.909 Unspecified asthma, uncomplicated
CPT/HCPCS: 81001; 87077; 87086; 87088; 87186; 99283; A9270

== ENCOUNTER 2022-05-09 11:25 | Emergency (ER) | payer OTHER, SELFPAY ==
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
[2022-05-09 11:31] VITALS: BP 136/82; PULSE 86; RESP 18; TEMP 36.6; O2SAT 99
[2022-05-09] MEDS: IBUPROFEN 600 MG TABLET PO (13:13)
[2022-05-09 13:39] LABS: Appearance Urine Clear (Clear); Bilirubin Urine Negative (Negative); Blood Urine Negative (Negative); Color Urine Yellow (Yellow); Glucose Urine UA Negative (Negative); Ketones Urine Trace mg/dL (Negative); Leukocyte Esterase Ur 1+ LEU/UL (Negative); Nitrate Urine Negative (Negative); Protein Urine Negative (Negative); Urobilinogen Urine >=8.0 mg/dL (<2.0)
[2022-05-09 13:53] LABS: Add Urine Microscopic? YES; RBC Urine 0-2 /hpf (0-2)
[2022-05-09 13:54] LABS: Bacteria Urine 1+ /hpf; Squamous Epithelial Cell Urine Many /hpf (Few); WBC Clumps Urine Present /hpf
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
[2022-05-09 14:13] VITALS: BP 122/66; PULSE 78; RESP 18; O2SAT 99
== END 2022-05-09 14:14 | disposition home or self-care (01) ==
PROVIDERS: Emergency Provider Emergency Medicine; PCP Obstetrics & Gynecology
DX: S16.1XXA Strain of muscle, fascia and tendon at neck level, initial encounter (principal); S29.9XXA Unspecified injury of thorax, initial encounter; S39.92XA Unspecified injury of lower back, initial encounter; J45.909 Unspecified asthma, uncomplicated; M47.817 Spondylosis without myelopathy or radiculopathy, lumbosacral region; V43.52XA Car driver injured in collision with other type car in traffic accident, initial encounter
CPT/HCPCS: 71101; 72072; 72110; 72125; 72170; 73060; 81001; 99284; A9270

== ENCOUNTER 2022-06-04 14:01 | Emergency (ER) | payer OTHER, SELFPAY ==
--- NOTE | 2022-06-04 14:05 | PC.NURSE ---
During triage patient states I thought I could just come in and see a doctor right away. Im not going to wait . Patient left department before being seen by provider.
== END 2022-06-04 14:04 | disposition left against medical advice (07) ==
LOC: ANHED 14:08
PROVIDERS: PCP Obstetrics & Gynecology
DX: Z53.21 Procedure and treatment not carried out due to patient leaving prior to being seen by health care provider (principal)
CPT/HCPCS: 99199

== ENCOUNTER 2022-06-04 23:01 | Emergency (ER) | payer OTHER, SELFPAY ==
[2022-06-04 23:07] VITALS: BP 121/76; PULSE 84; RESP 18; TEMP 36; O2SAT 100
--- NOTE | 2022-06-05 00:16 | ED.GENADULT ---
HPI - General Adult General Chief complaint: Extremity Injury, Lower Stated complaint: stepped on broken glass, L foot Time Seen by Provider: 06/04/22 23:55 History of Present Illness HPI narrative: Patient is 32-year-old female who presents ER with concerns for glass in her left heel. She had broken a baking real and then stepped on the glass. She feels like there is a small piece that she cannot get out. Tetanus up-to-date. No numbness or tingling. No additional concerns. Related Data Home Medications Medication Instructions Recorded Confirmed etonogestrel 0.12 mg-ethinyl vag ring vaginal 04/14/20 estradiol 0.015 mg/24 hr vaginal ring (NuvaRing) Allergies Allergy/AdvReac Type Severity Reaction Status Date / Time No Known Allergies Allergy Verified 06/04/22 23:03 Review of Systems Musculoskeletal: Musculoskeletal: Denies arthralgias and Denies joint swelling Comments: Left heel pain Integumentary/Breasts: Skin/Breast: Denies erythema and Denies rash Neurologic: Denies focal weakness and Denies numbness PMFSH Past Medical History Medical History (Updated 06/05/22 @ 00:19 by Scotty Dickerson MD) Asthma Social History Social History 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 HEAD: Normocephalic, atraumatic. EXTREMITIES: Normal range of motion. No edema. Small abrasion left heel with tenderness with palpation. Smaller than half centimeter. SKIN: Warm, dry, no rash. NEURO: Alert and oriented x3. PSYCH: Normal mood and affect. Course Course Emergency Course: Unsure if there is foreign body present or not. The left heel was probed with an 18-gauge and afterwards patient no longer had discomfort in the area. Possible small piece of glass was removed but given the fact that patient is no additional pain will not image the foot with x-ray. Vital Signs Vital signs: Vital Signs Temperature 96.8 F L 06/04/22 23:07 Pulse Rate 84 06/04/22 23:07 Respiratory Rate 18 06/04/22 23:07 Blood Pressure 121/76 06/04/22 23:07 Pulse Oximetry 100 06/04/22 23:07 Oxygen Delivery Room Air 06/04/22 23:07 Temperature 96.8 F L 06/04/22 23:07 Pulse Rate 84 06/04/22 23:07 Respiratory Rate 18 06/04/22 23:07 Blood Pressure 121/76 06/04/22 23:07 Pulse Oximetry 100 06/04/22 23:07 Oxygen Delivery Room Air 06/04/22 23:07 Medical Decision Making Vital Signs Vital Signs: Vital Signs Temperature 96.8 F L 06/04/22 23:07 Pulse Rate 84 06/04/22 23:07 Respiratory Rate 18 06/04/22 23:07 Blood Pressure 121/76 06/04/22 23:07 Pulse Oximetry 100 06/04/22 23:07 Oxygen Delivery Room Air 06/04/22 23:07 Temperature 96.8 F L 06/04/22 23:07 Pulse Rate 84 06/04/22 23:07 Respiratory Rate 18 06/04/22 23:07 Blood Pressure 121/76 06/04/22 23:07 Pulse Oximetry 100 06/04/22 23:07 Oxygen Delivery Room Air 06/04/22 23:07 Discharge Plan Discharge Clinical Impression: Abrasion of heel Patient Disposition: Home, Self-Care Condition: Stable Instructions: Abrasion (ED) Additional Instructions: Return the ER if your foot is red and hot, the wound is draining pus, or you have new injury. Prescriptions: No Action etonogestrel-ethinyl estradiol [NuvaRing] 0.12-0.015 mg/24 hr ring VAGINAL oxycodone-acetaminophen 5-325 mg tablet 1 tablet PO Q6H PRN (Reason: pain) Qty: 14 0RF nitrofurantoin monohyd/m-cryst [Macrobid] 100 mg capsule 100 mg PO Q12H 5 Days Qty: 10 0RF Rx Instructions: must administer with a meal/food cephalexin 500 mg capsule 500 mg PO Q12H 7 Days Qty: 14 0RF phenazopyridine [Pyridium] 100 mg tablet 100 mg PO TID PRN (Reason: pain) Qty: 6 0RF sulfa
== END 2022-06-05 00:27 | disposition home or self-care (01) ==
PROVIDERS: Emergency Provider Emergency Medicine; PCP Obstetrics & Gynecology
DX: S90.812A Abrasion, left foot, initial encounter (principal); W25.XXXA Contact with sharp glass, initial encounter
CPT/HCPCS: 99282